=== PATIENT | male | born 1985 | race African-American/Black ===

== ENCOUNTER 2018-06-26 19:53 | Emergency (ER) | payer OTHER ==
[~2018-06-26] VITALS: Ht 172.7 cm; Wt 139.7 kg
[2018-06-26 20:13] VITALS: BP 136/94
[2018-06-26] MEDS ORDERED: BACITRACIN TOP OINT 1 UD PKG TOP ONE (21:15)
[2018-06-26] MEDS ORDERED: LIDOCAINE 1% HCL (LOCAL ANESTH.) INJ 20ML MDV ID ONE (21:15)
[2018-06-26] MEDS ORDERED: LIDOCAINE 1%HCL (LOCAL ANESTH) 10 ML MDV ONE (21:42)
[2018-06-26] MEDS ORDERED: TETANUS-DIPTH-ACEL PERTUSSIS 0.5ML SYRG IM ONE (22:15)
== END 2018-06-26 22:30 | disposition home or self-care (01) ==
LOC: ER 19:53
DX: S61.411A Laceration without foreign body of right hand, initial encounter (principal); F17.210 Nicotine dependence, cigarettes, uncomplicated; W22.8XXA Striking against or struck by other objects, initial encounter; Y93.89 Activity, other specified; Y92.89 Other specified places as the place of occurrence of the external cause; Y99.8 Other external cause status
CPT/HCPCS: 12002; 73120; 90471; 90715; 99284; J2001